=== PATIENT | female | born 1985 | race Caucasian/White ===

== ENCOUNTER 2021-07-01 20:45 | Observation (INO) | payer OTHER, MEDICAID, SELFPAY ==
--- NOTE | ~2021-07-01 | XR_ITS ---
EXAMINATION: XR chest 1V portable Exam Date/Time: 07/01/2021 21:30 CDT CLINICAL HISTORY: weakness Comparison: None available. RESULT: Lines, tubes, and devices: None. Lungs and pleura: Clear. Cardiomediastinal silhouette: Normal cardiomediastinal silhouette. Other: No acute osseous or upper abdominal finding. IMPRESSION: No acute cardiopulmonary process Reviewed, dictated and finalized at location K.
--- NOTE | ~2021-07-01 | CT_ITS ---
EXAMINATION: CT abdomen pelvis w con DATE: 07/02/2021 00:00 INDICATION: Generalized abdominal pain. TECHNIQUE: Computed tomography (CT) of the abdomen and pelvis was performed with 100 mL Omnipaque 300 intravenous contrast. Automated exposure control and iterative reconstruction technique were employe d. The dose-length product was 195.82 mGy-cm. COMPARISON: None. FINDINGS: The visualized portions of the lung bases are clear without pneumonia or pleural effusion. The heart size is normal. No pericardial effusion. The liver, gallbladder, spleen, pancreas, adrenal glands, and right kidney are normal. There is a 6 mm cyst in left kidney. There are no dilated loops of bowel. The appendix is normal. There are no pathologically enlarged lymph nodes. There is no free intraperitoneal fluid. There is mild thoracic spondylosis. There is mild chronic anterior wedging of multiple thoracic vertebral bodies. IMPRESSION: 1. No etiology for the patient's symptoms. Reviewed, dictated and finalized at location B.
[2021-07-01 20:52] VITALS: BP 100/75; PULSE 117; RESP 19; TEMP 36.5; O2SAT 98
--- NOTE | 2021-07-01 21:32 | ECG_ITS ---
Measurements Intervals Hurt Rate: 91 P: 149 WA: 128 QRS: 147 QRSD: 87 T: 150 QT: 377 QTc: 466 Interpretive Statements SINUS RHYTHM MISSING LEAD II BORDERLINE R WAVE PROGRESSION, ANTERIOR LEADS BORDERLINE T WAVE ABNORMALITY- HIGH LATERAL LEADS BORDERLINE ECG Electronically Signed On 07-02-2021 6:32:00 CDT by Elvin Hinojosa D.O.
[2021-07-01 22:11] LABS: Basophils Absolute Auto 0.1 K/mm3 (0.0-0.1); Basophils Percent Auto 1.5 % (0.2-1.2); Hematocrit 41.2 % (37.0-47.0); Hemoglobin 13.9 g/dL (12.0-15.0); Immature Granulocyte Absolute 0.01 K/mm3 (0.00-0.031); Immature Granulocyte Percent A 0.3 % (0-0.5); Lymphocytes Percent Auto 25.4 % (18.3-44.2); Mean Corpuscular HGB Conc 33.7 g/dl (32-36); Mean Corpuscular Hemoglobin 30.9 pg (26-34); Mean Corpuscular Volume 91.6 fl (80-100); Mean Platelet Volume 8.5 fl (7.4-10.4); Monocytes Absolute Auto 0.2 K/mm3 (0.1-0.6); Monocytes Percent Auto 6.1 % (2.6-8.5); Neutrophils Absolute Auto 2.6 K/mm3 (1.3-6.7); Neutrophils Percent Auto 65.7 % (45.5-73.1); Platelet Count Result 353 k/mm3 (150-375); Red Cell Distribution Width 15.4 % (11.5-14.5); White Blood Count 3.9 K/mm3 (4.5-10.0)
[2021-07-01 22:13] LABS: Appearance Urine Slightly Cloudy (Clear); Bilirubin Urine Negative (Negative); Blood Urine Negative (Negative); Glucose Urine UA Negative (Negative); Ketones Urine Negative (Negative); Leukocyte Esterase Ur 1+ LEU/UL (Negative); Nitrate Urine Positive (Negative); Protein Urine Negative (Negative); Urobilinogen Urine 0.2 mg/dL (<2.0)
[2021-07-01 22:15] LABS: Add Urine Microscopic? YES; Color Urine Light Yellow (Yellow)
[2021-07-01 22:17] LABS: Bacteria Urine 2+ /hpf; Mucus Urine Rare /lpf; RBC Urine 0-2 /hpf (0-2); Squamous Epithelial Cell Urine Moderate /hpf (Few)
[2021-07-01 22:20] LABS: Lactic Acid Reflex 3.5 mmol/L (0.7-2.0)
[2021-07-01 22:21] LABS: INR 0.9; Partial Thromboplastin Time 26.6 SECONDS (22.3-36.8)
[2021-07-01 22:22] LABS: Alanine Aminotransferase 38 U/L (6-35); Albumin Level 4.7 g/dL (3.5-5.1); Alkaline Phosphatase 92 U/L (38-126); Anion Gap 16 mmol/L (8-16); Aspartate Amino Transferase 62 U/L (14-36); Bilirubin,Total 0.2 mg/dL (0.2-1.3); Blood Urea Nitrogen 6 mg/dL (7-17); Calcium 8.8 mg/dL (8.4-10.2); Carbon Dioxide 26 mmol/L (22-30); Chloride 102 mmol/L (98-107); Estimated CRCL calculation 64 ml/min; Estimated Glomerular Filt Rate > 60; Glucose 97 mg/dL (65-110); Lipase 452 U/L (23-300); Magnesium 1.9 mg/dL (1.6-2.3); Potassium 4.2 mmol/L (3.4-5.0); Sodium 144 mmol/L (137-145)
[2021-07-01 22:28] LABS: Ammonia < 9 umol/L (9-30)
[2021-07-01 22:35] LABS: Ethanol 378 mg/dL (<10)
--- NOTE | 2021-07-01 23:06 | ED.GENADULT ---
HPI - General Adult General Chief complaint: Alcohol <SCOUT Fishman Last Filed: 07/02/21 04:06> Stated complaint: alcohol <SCOUT Fishman Last Filed: 07/02/21 04:06> Time Seen by Provider: 07/01/21 22:23 <SCOUT Fishman Last Filed: 07/02/21 04:06> Source: patient <SCOUT Fishman Last Filed: 07/02/21 04:06> Mode of arrival: ambulatory <SCOUT Fishman Last Filed: 07/02/21 04:06> Limitations: clinical condition <SCOUT Fishman Last Filed: 07/02/21 04:06> History of Present Illness HPI narrative: Patient is a 36-year-old female who presents to the ED with report of ETOH abuse. Patient reports today she is a daily alcohol drinker. She drinks beer and typically drinks about 18 beers a day. She has been drinking heavily over the past 1 month. She states something happened at that time to cause her to start drinking but she is unable to tell me what. She states she last drank around 10 AM this morning and had 3 beers today. Patient reports feeling shaky, nauseous, with diffuse abdominal pain. She has not eaten anything today. Denies any recent fever or chills. Denies vomiting. Denies history of pancreatitis. Patient reports she is originally from [place] and is here with her boyfriend. <Daria Francis PA-C - Last Filed: 07/02/21 04:06> Related Data Allergies/adverse reactions: Allergies Allergy/AdvReac Type Severity Reaction Status Date / Time No Known Allergies Allergy Verified 07/01/21 23:30 <SCOUT Fishman Last Filed: 07/02/21 04:06> Review of Systems Review of Systems: CONSTITUTIONAL: Denies fever, chills. CARDIOVASCULAR: Denies chest pain. RESPIRATORY: Denies dyspnea. GASTROINTESTINAL: Reports diffuse abdominal pain, nausea. Denies vomiting. NEUROLOGIC: Reports shakiness. <SCOUT Fishman Last Filed: 07/02/21 04:06> ROS unobtainable: Yes unobtainable due to medical condition <SCOUT Fishman Last Filed: 07/02/21 04:06> [facility] Past Medical History Medical History: Medical History (Updated 07/02/21 @ 08:02 by Carisa Alvarado DO) Alcohol withdrawal seizure Alcoholism <SCOUT Fishman Last Filed: 07/02/21 04:06> Surgical History Surgical History: Surgical History (Updated 07/02/21 @ 07:54 by Carisa Alvarado DO) No significant past surgical history <Daria Francis PA-C - Last Filed: 07/02/21 04:06> Family History Family History: Family History Other Adopted <SCOUT Fishman Last Filed: 07/02/21 04:06> Social History Social History: Social History (Updated 07/02/21 @ 07:55 by Carisa Alvarado DO) Tobacco type: e-cigarettes/vaping Additional smoking assessment comments: Pt states she vapes alot daily Alcohol intake: current Drinks per week: 200 Alcohol use details: She drinks 20 beers a day Substance use type: marijuana Last use: unknown Living arrangements: homeless Occupation/Education: unemployed Spiritual care concerns: No <SCOUT Fishman Last Filed: 07/02/21 04:06> Exam Narrative: GENERAL: Ill appearing, thin, non-toxic, in mild acute distress. HEAD: Normocephalic, atraumatic. EYES: PERRL/EOMI, conjunctivae clear bilaterally. NECK: Supple. No adenopathy, no masses. RESPIRATORY: Airway patent, respirations nonlabored. Clear to auscultation bilaterally, no rales, rhonchi, wheezing. CARDIOVASCULAR: Tachycardic with regular rhythm without murmurs, rubs, or gallops. Peripheral pulses 2+ and equal bilaterally. ABDOMINAL: Soft, diffuse tenderness to palpation, no localized tenderness, nondistended, no hepatosplenomegaly. Normoactive BS. MUSCULOSKELETAL: Moves all extremities. Strength/ROM intact without gross deformities. SKIN: Warm, dry, normal color. No rashes. Scar on R upper back. NEURO: A&O X3. Speech clear. Cranial nerves II-XII grossly intact. T
[2021-07-01] MEDS: SODIUM CHLORIDE 0.9% IV 1,000 ML 999 ML IV CONT (23:31)
[2021-07-01] MEDS: ONDANSETRON INJ 4 MG/2 ML VIAL IV PUSH (23:32)
[2021-07-01] MEDS: LORazepam INJ (*CRX) 2 MG/ML VIAL 0.5 MG IV PUSH (23:32)
[2021-07-02] VITALS (8 sets, daily range): BP systolic 90–123; BP diastolic 44–95; PULSE 92–106; RESP 16–20; TEMP 36–37.5; O2SAT 100; BMI 16.5
[2021-07-02 01:08] LABS: Reflex Lactic Acid Yes or No Add Lactic
[2021-07-02 01:40] LABS: Lactic Acid 3.7 mmol/L (0.7-2.0)
[2021-07-02] MEDS: LORazepam INJ (*CRX) 2 MG/ML VIAL 0.5 MG IV PUSH (01:49)
[2021-07-02] MEDS: SODIUM CHLORIDE 0.9% IV 1,000 ML 999 ML IV CONT ×2 (02:43→04:51)
[2021-07-02 02:58] LABS: Amphetamine Screen Urine Negative (Negative); Barbiturate Screen Urine Negative (Negative); Benzodiazepines Screen Urine Negative (Negative); Cannabinoid Screen Urine Negative (Negative); Cocaine Screen Urine Negative (Negative); Methadone Screen Urine Negative (Negative); Opiate Screen Urine Negative (Negative); Phencyclidine Screen Urine Negative (Negative)
[2021-07-02 03:31] LABS: SARS-CoV-2 RNA PCR Negative
[2021-07-02] MEDS: THIAMINE HCL 200 MG/2 ML VIAL 100 MG IV PUSH (04:51)
--- NOTE | 2021-07-02 06:21 | PM.IMHP ---
H&P: HPI History of Present Illness Date/Time: 07/02/21 06:21 Chief Complaint: ?alcohol withdrawal? Narrative: 36-year-old female with past medical history of anxiety, depression and alcoholism who presented to the ER complaining of symptoms of alcohol withdrawal. The patient version of how much she drinks and when her last drink was varies depending on the examiner. The patient told me that she drinks at least a 20 beers a day. She told nursing staff that she has been staying at a local hotel with her boyfriend and they bought over 30 beers. She during most of the beers herself. She has been drinking heavily for years but has been drinking at least 15-20 beers a day for the last month continuous. She was evidently at in alcohol rehab center in [place] is a couple of months ago. She went back to drinking almost immediately. She reports that she hurts all over and has a mild headache. She is obviously anxious and is writhing around the bed. The patient is moaning with respirations. She reports some mild nausea. She denies any loose in a shins. She has had history of alcohol withdrawal seizures in the past. She reports that her right eyebrow hurts because she fell a couple of days ago and hit her head. She does not remember how she fell. She thinks she may have been in the shower but she does agree that she was likely intoxicated. She also reports that she has pain in her right hip to palpation but is able to walk on the hip. She states that the fingers on her right hand are swollen in indicates that her right index finger hurts and she thinks she may have injured it is well. She denies using any other drugs besides alcohol and marijuana. She last used marijuana several days ago. She does vape as well. Turns out that the patient moved from [place] a year ago. She told me that she has been living in local hot. She tells the nursing staff that she is for the most part homeless. She states that she does not work and that her boyfriend provides all of her alcohol. She has a UA that is suggestive of a possible UTI. Her temperature was elevated to 99.5 when she arrived to the medical floor. She had some mild leukopenia. She denies any dysuria. She reports that she was not having any urinary frequency until she received the IV fluids in the ER. She denies any hematuria. She does report some right flank pain that is worse with percussion of the CVA region. She told nursing staff she was having generalized abdominal pain but in the next sentence asked me twice for food. She denies any diarrhea or hematochezia or melena. The patient's alcohol level is 378 when she arrived to the ER and she was already tremulous and anxious. Patient's CIWA score in ER was 9. When patient arrived to the medical floor nursing staff called me to tell me the patient's CIWA score was 32. I gave orders for Librium and 2 mg of Ativan. The patient had not yet received the Ativan or Librium at the time of my evaluation and the patient's CIWA score at that time was 24. Review of Systems Review of Systems: 12 systems were reviewed with pertinent positives and negatives per HPI. Except as documented in the HPI, all other systems were reviewed and are negative. [facility] Past Medical History Medical History Alcohol withdrawal seizure Alcoholism Depression with anxiety Surgical History Surgical History (Updated 07/02/21 @ 07:54 by Carisa Alvarado DO) No significant past surgical history Family History Family History Other Adopted Social History Social History (Updated 07/02/21 @ 07:55 by Carisa Alvarado DO) Tobacco type: e-cigarettes/vaping Additional smoking assessment comments: Pt states she vapes alot daily Alcohol intake: current Drinks per week: 200 Alcohol use details: She drinks 20 beers a day Substance use type: marijuana
[2021-07-02] MEDS: LORazepam INJ (*CRX) 2 MG/ML VIAL IV PUSH ×3 (06:39→13:46)
[2021-07-02] MEDS: chlordiazePOXIDE (*CRX) 25 MG CAPSULE 50 MG PO ×2 (06:40→11:04)
[2021-07-02 06:47] LABS: Magnesium 1.5 mg/dL (1.6-2.3)
[2021-07-02 08:25] LABS: Lactic Acid Reflex 2.4 mmol/L (0.7-2.0)
[2021-07-02 08:31] LABS: Creatine Kinase 163 U/L (30-135)
[2021-07-02] MEDS: FOLIC ACID 1 MG TABLET PO (08:37)
[2021-07-02] MEDS: SODIUM CHLORIDE 0.9% IV 1,000 ML 150 ML IV CONT ×2 (08:37→15:18)
[2021-07-02] MEDS: THIAMINE HCL 100 MG TABLET PO (08:37)
[2021-07-02] MEDS: POTASSIUM PHOS/SODIUM PHOS 250 MG TABLET PO (08:52)
[2021-07-02] MEDS: MAGNESIUM SULF 4 GM/WATER100ML 4 GM/100 ML BAG IVPB (08:52)
[2021-07-02 09:45] LABS: Folic Acid 10.7 ng/mL (2.76->20)
[2021-07-02] MEDS: ACETAMINOPHEN 325 MG TABLET 650 MG PO (12:04)
[2021-07-02] MEDS: NICOTINE (*PBKC) 21 MG PATCH 1 PATCH TRANSDERM (12:04)
--- NOTE | 2021-07-02 12:43 | PM.IMPN ---
Progress Note: A&P Assessment and Plan (1) Lactic acidosis: Code(s): E87.2 - Acidosis Status: Acute (2) Alcohol withdrawal: Qualifiers: Complication of substance-induced condition: uncomplicated Qualified Code(s): F10.230 - Alcohol dependence with withdrawal, uncomplicated Code(s): F10.239 - Alcohol dependence with withdrawal, unspecified Status: Acute (3) Hypomagnesemia: Code(s): E83.42 - Hypomagnesemia Status: Acute (4) Hypophosphatemia: Code(s): E83.39 - Other disorders of phosphorus metabolism Status: Acute (5) Abnormal urinalysis: Code(s): R82.90 - Unspecified abnormal findings in urine Status: Acute (6) ETOH abuse: Code(s): F10.10 - Alcohol abuse, uncomplicated Status: Acute (7) Depression with anxiety: Code(s): F41.8 - Other specified anxiety disorders Status: Acute (8) Tobacco abuse: Code(s): Z72.0 - Tobacco use Status: Acute Additional Plan Patient has been admitted to [address] [place] [address] for alcohol withdrawal. Her CIWA scores was 24. She was given thiamine and folate. She has been started on Librium scheduled. Ativan is available as needed for worsening withdrawal symptoms. She was educated about the benefits of abstain from alcohol and tobacco use. This will need to be reinforced when she is feeling better. operations manager/coordinator to provide information about drug alcohol rehab. Will check HIV and hepatitis. Lactic acid level trending downward. Will repeat in the morning. Replace electrolytes and follow. Follow-up on urine culture. B12 injection given the low normal B12. Suspect related to malnutrition. Continue to follow. SCDs for DVT prophylaxis Subjective Date/time seen: 07/02/21 12:43 Interval history: 36yo female with a hx of alcoholism here for withdrawal symtpoms. She drinks 22-30 beers per day. She has used meth in the past. She is agreeable for HIV and hepatitis testing. Feels shaky. She does feel mildly confused and does have difficulty at times providing consistent hx. Exam Narrative: AF 99.5 103/86 106 20 100% ra Gen - thin female in NARD Chest - CTA bilaterally, nml RR CV - RRR S1/S2 Abd - Soft, scaphoid, NT, Positive BS Ext - No pedal edema. 2+ DP bilaterally. poor muscle mass Neuro - Alert and oriented x3. She alters the hx she gives. Nonfocal exam. Psych - shaking and tremulous. Skin - Warm and dry Objective Data Vital Signs Vital Signs: Vital Signs - 24 hr 07/01/21 20:52 07/02/21 00:41 07/02/21 04:45 Temperature 97.7 F Pulse Rate 117 H 101 H 100 Pulse Rate [Left Radial] Respiratory Rate 19 20 16 Blood Pressure 100/75 101/73 123/95 H Pulse Oximetry 98 100 100 07/02/21 05:17 07/02/21 08:00 07/02/21 10:29 Temperature 99.5 F Pulse Rate 106 H 106 H Pulse Rate [Left Radial] 106 H Respiratory Rate 20 20 Blood Pressure 103/86 Pulse Oximetry 100 100 Intake/Output Intake/Output: Intake & Output 06/29/21 06/30/21 07/01/21 07/02/21 23:59 23:59 23:59 23:59 Intake Total 2825 Balance 2825 Meds/Results Medications: Active Medications Generic Name Dose Route Start Last Admin Trade Name Freq PRN Reason Stop Dose Admin Acetaminophen 650 mg 07/02/21 10:47 07/02/21 12:04 Acetaminophen 325 Mg Tablet PO 650 mg Q6H PRN Administration Mild Pain (1-3) or Fever Chlordiazepoxide HCl 50 mg 07/02/21 06:20 07/02/21 11:04 Chlordiazepoxide (*Crx) 25 Mg Capsule PO 50 mg Q6HR LUBNA Administration Folic Acid 1 mg 07/02/21 09:00 07/02/21 08:37 Folic Acid 1 Mg Tablet PO 1 mg DAILY LUBNA Administration Sodium Chloride 1,000 mls @ 150 mls/hr 07/02/21 07:55 07/02/21 08:37 Normal Saline Iv IV CONT 150 mls/hr .Q6H40M LUBNA Administration Lorazepam 2 mg 07/02/21 06:15 07/02/21 10:37 Lorazepam Inj (*Crx) 2 Mg/Ml Vial IV PUSH 2 mg Q4H PRN Administration CIWA >8 Nicotine 1 patch 0
[2021-07-02] MEDS: CYANOCOBALAMIN INJ 1,000 MCG/ML VIAL 1000 MCG IM (13:46)
--- NOTE | 2021-07-02 16:19 | PC.NURSE ---
Pt discharging MD Dougie PERSAUD aware. CORI paperwork signed and IV removed.
--- NOTE | 2021-07-03 07:55 | PM.DS ---
DS: Admitting Diagnosis Discharge Date 07/02/21 Admitting Diagnosis Alcohol withdrawal DS: Discharge Diagnosis Discharge Diagnosis (1) Lactic acidosis: Code(s): E87.2 - Acidosis Status: Acute (2) Alcohol withdrawal: Qualifiers: Complication of substance-induced condition: uncomplicated Qualified Code(s): F10.230 - Alcohol dependence with withdrawal, uncomplicated Code(s): F10.239 - Alcohol dependence with withdrawal, unspecified Status: Acute (3) Hypomagnesemia: Code(s): E83.42 - Hypomagnesemia Status: Acute (4) Hypophosphatemia: Code(s): E83.39 - Other disorders of phosphorus metabolism Status: Acute (5) Abnormal urinalysis: Code(s): R82.90 - Unspecified abnormal findings in urine Status: Acute (6) ETOH abuse: Code(s): F10.10 - Alcohol abuse, uncomplicated Status: Acute (7) Depression with anxiety: Code(s): F41.8 - Other specified anxiety disorders Status: Acute (8) Tobacco abuse: Code(s): Z72.0 - Tobacco use Status: Acute DS: Summary Hospital Course Reason for hospitalization: 36yo female with a hx of alcoholism here for withdrawal symptoms. Please see H&P for details Hospital Course: Patient was admitted to [address] [place] [address] for alcohol withdrawal. Her CIWA scores was 24. She was given thiamine and folate. She was started on Librium scheduled. Ativan was available as needed for worsening withdrawal symptoms. She was educated about the benefits of abstain from alcohol and tobacco use. B12 injection given for low normal B12. Lactic acid elevated and was trending down with IV fluids and supportive care. Not felt to be infectious related. She had improvement. Called later by nursing stating patient wanted to sign out against medical advise. Explained that as long as she is oriented, the patient has the right to leave against medical advise. Patient left AMA Status at Discharge Cognitive/behavioral status at discharge: stable Time Spent with Patient Time attestation: Total time spent providing and/or coordinating discharge services: 32 minutes Time spent: Greater than 30 minutes Exam Narrative: AF 99.5 103/86 106 20 100% ra Gen - thin female in NARD Chest - CTA bilaterally, nml RR CV - RRR S1/S2 Abd - Soft, scaphoid, NT, Positive BS Ext - No pedal edema. 2+ DP bilaterally. poor muscle mass Neuro - Alert and oriented x3. She alters the hx she gives. Nonfocal exam. Psych - shaking and tremulous. Skin - Warm and dry DS: Data Data Completed and Pending Labs on day of discharge: Labs from last 24 hours 07/02/21 07/02/21 07/02/21 13:25 08:03 08:03 Lactic Acid 2.4 H Total Creatine Kinase Vitamin B12 252.0 Methylmalonic Acid Pending Folate 10.7 07/02/21 06:10 Lactic Acid Total Creatine Kinase 163 H Vitamin B12 Methylmalonic Acid Folate Preliminary micro results at discharge 07/02/21 06:18 Blood Culture - Preliminary Blood 07/02/21 06:18 Blood Culture - Preliminary Blood Discharge Plan Discharge Consulting providers: Daria Francis Patient Disposition: Left Against Medical Advice Patient Instructions: How to Stop Smoking (GEN), Alcohol Withdrawal (DC) Date of admission: 07/02/21 03:57 Primary Care Provider: PHYSICIAN,SUPERVISOR JEWEL[employer] DEPARTMENT Admitting Provider: Carisa Alvarado Attending physician on admission: Carisa Alvarado Condition: Stable
[2021-07-06 04:20] LABS: Methylmalonic Acid 421 nmol/L (87-318)
--- NOTE | 2021-07-09 11:58 | PC.NURSE ---
MMA is high at 421. Blood cx are negative.
== END 2021-07-02 16:20 | disposition left against medical advice (07) ==
LOC: ANHED 07-02 04:05 → ANH3MEDSUR 07-02 05:55
PROVIDERS: Physician Assistant; Admitting Provider Internal Medicine; Emergency Provider General Practice; Visit Provider Internal Medicine
DX: F10.239 Alcohol dependence with withdrawal, unspecified (principal); F17.290 Nicotine dependence, other tobacco product, uncomplicated; E87.2 Acidosis; Z20.822 Contact with and (suspected) exposure to COVID-19; F12.90 Cannabis use, unspecified, uncomplicated; E83.42 Hypomagnesemia; R82.90 Unspecified abnormal findings in urine; E83.39 Other disorders of phosphorus metabolism; F41.8 Other specified anxiety disorders; Z53.29 Procedure and treatment not carried out because of patient's decision for other reasons
CPT/HCPCS: 36415; 71045; 74177; 80053; 80307; 81001; 81025; 82140; 82550; 82607; 82746; 83605; 83690; 83735; 83921; 84100; 85025; 85610; 85730; 87040; 87086; 87088; 93005; 96361; 96365; 96374; 96375; 96376; 99285; A9270; C9803; G0378; J0696; J2060; J2405; J3411; J3420; J3475; J7030; Q9967; U0003; U0005